=== PATIENT | male | born 1965 | race Caucasian/White ===

== ENCOUNTER 2021-07-28 20:01 | Emergency (ER) | payer BC ==
[~2021-07-28] VITALS: Ht 177.8 cm; Wt 102.3 kg
[~2021-07-28 20:01] MED LIST: NO HOME MEDICATIONS
[2021-07-28 20:30] VITALS: TEMP 97.2
[2021-07-28 21:25] VITALS: BP 116/78; PULSE 76
== END 2021-07-28 21:12 | disposition home or self-care (01) ==
LOC: COL.ER 20:01
DX: S61.213A Laceration without foreign body of left middle finger without damage to nail, initial encounter (principal); T63.461A Toxic effect of venom of wasps, accidental (unintentional), initial encounter; Z23 Encounter for immunization; W26.0XXA Contact with knife, initial encounter